=== PATIENT | female | born 1950 | race African-American/Black ===

== ENCOUNTER 2020-03-09 10:30 | Emergency (ER) | payer MEDICAID ==
[~2020-03-09] VITALS: Ht 170.2 cm; Wt 73.0 kg
[2020-03-09 10:32] VITALS: BP 141/52
[2020-03-09] MEDS ORDERED: NAPROXEN 250MG TABLET PO NR (12:00)
== END 2020-03-09 12:16 | disposition home or self-care (01) ==
LOC: ER 10:30
DX: M79.672 Pain in left foot (principal); M72.2 Plantar fascial fibromatosis; H26.9 Unspecified cataract; Z98.890 Other specified postprocedural states
CPT/HCPCS: 73630; 99283